=== PATIENT | female | born 1945 | race Caucasian/White ===

== ENCOUNTER 2023-08-11 15:03 | Inpatient (IN) | payer MEDICARE, OTHER ==
[~2023-08-11] VITALS: Ht 157.4 cm; Wt 86.4 kg
[2023-08-11] MEDS ORDERED: Glimepiride1 MG PO (19:38)
[2023-08-11] MEDS ORDERED: EXELON1 EAC2 TD (19:40)
[2023-08-11] MEDS ORDERED: LEVOTHYROXINE25 MCG PO (19:40)
[2023-08-11] MEDS ORDERED: ZESTRIL5 MG PO (19:41)
[2023-08-11] MEDS ORDERED: LIPITOR20 MG PO (19:41)
[2023-08-11] MEDS ORDERED: REMERON15 M2 PO (19:50)
[2023-08-11] MEDS ORDERED: METOPROLOL25 MG PO (19:50)
[2023-08-11] MEDS ORDERED: SEN-O-TABS8.6 MG PO (19:52)
[2023-08-11] MEDS ORDERED: NAMENDA-5 PO (19:52)
[2023-08-11] MEDS ORDERED: TYLENOL325 M1 PO (19:52)
[2023-08-11] MEDS ORDERED: LORazepam 1 MG TAB PO PRN (19:55)
[2023-08-11 20:00] VITALS: BP 138/78
[2023-08-11] MEDS ORDERED: Ziprasidone Mesylate 20 MG VIAL IM PRN (20:00)
[2023-08-11] MEDS ORDERED: Water, Sterile 10 ML VIAL IM PRN (20:00)
[2023-08-11] MEDS ORDERED: ACETAMINOPHEN 325 MG TAB PO PRN (20:05)
[2023-08-11] MEDS ORDERED: MG-AL HYDROXIDE/SIMETICONE 30 ML UDC PO PRN (20:05)
[2023-08-11] MEDS ORDERED: Magnesium Hydroxide 30 ML UDC PO PRN (20:05)
[2023-08-11] MEDS ORDERED: Menthol/Zinc Oxide 4 GM THIN T PRN (20:15)
[2023-08-11] MEDS ORDERED: Sennosides A and B 8.6 MG TAB PO PRN (21:00)
[2023-08-11] MEDS ORDERED: Memantine Hydrochloride 5 MG TAB PO SCH (21:00)
[2023-08-11] MEDS ORDERED: ATORVASTATIN CALCIUM 20 MG TAB PO SCH (21:00)
[2023-08-11] MEDS ORDERED: DIVALPROEX SODIUM 125 MG TAB PO SCH (21:00)
[2023-08-12] MEDS ORDERED: Levothyroxine Sodium 25 MCG TAB PO SCH (06:00)
[2023-08-12 06:49] LABS: BASO % 0.5 % (0.0-1.0); EOS # 0.3 10*3/uL (0.0-0.4); EOS % 3.8 % (1.0-4.0); HEMATOCRIT 44.5 % (37.0-47.0); LYMPH # 2.7 10*3/uL (1.3-4.4); LYMPH % 34.8 % (27.0-41.0); MEAN CELL VOLUME 100.9 fl (81.0-99.0); MEAN CORPUSCULAR HGB 32.9 pg (27.0-31.0); MEAN CORPUSCULAR HGB CONC 32.6 g/dl (33.0-37.0); MEAN PLATELET VOLUME 9.8 fl (9.6-12.3); MONO # 0.6 10*3/uL (0.1-1.0); MONO % 7.6 % (3.0-9.0); NEUT # 4.2 10*3/uL (2.3-7.9); PLATELET COUNT AUTOMATED 236 10*3/uL (130-400); RED BLOOD COUNT 4.41 10*6/uL (4.10-5.10); WHITE BLOOD COUNT 7.9 10*3/uL (4.8-10.8)
[2023-08-12 07:15] LABS: ALKALINE PHOSPHATASE 83 U/L (46-116); BUN 8 mg/dl (9-23); CHLORIDE 104 mmol/L (98-107); CHOLESTEROL 174 mg/dL (<200); LDL CHOLESTEROL 86 mg/dL (9-159); POTASSIUM 3.8 mmol/L (3.4-5.1); SGPT/ALT 10 U/L (5-49); TOTAL PROTEIN 6.3 gm/dL (6.0-8.0); TRIGLYCERIDES 116 mg/dl (<150)
[2023-08-12] MEDS ORDERED: GLIMEPIRIDE 2 MG TAB PO SCH (07:30)
[2023-08-12 07:52] LABS: VITAMIN D, 25-HYDROXY 42.2 ng/mL (30-100)
[2023-08-12 08:00] VITALS: BP 141/72
[2023-08-12] MEDS ORDERED: LISINOPRIL 5 MG TAB PO SCH (09:00)
[2023-08-12] MEDS ORDERED: Metoprolol Tartrate 25 MG TAB PO SCH (09:00)
[2023-08-12] MEDS ORDERED: RIVASTIGMINE 13.3 MG/24 HR TDM T SCH (09:50)
[2023-08-12 14:00] VITALS: BP 141/72
[2023-08-12 20:00] VITALS: BP 129/61
[2023-08-12] MEDS ORDERED: Mirtazapine 15 MG TAB PO SCH (21:00)
[2023-08-13 07:31] VITALS: BP 150/78
[2023-08-13] MEDS ORDERED: Memantine Hydrochloride 5 MG TAB PO SCH (09:00)
[2023-08-13 20:00] VITALS: BP 140/76
[2023-08-14 01:54] LABS: BILIRUBIN Negative (Negative); BLOOD Negative (Negative); CLARITY Clear (Clear); COLOR Yellow (Yellow); GLUCOSE Negative (Negative); KETONE Negative (Negative); LEUKO ESTERASE 1+ (Negative); NITRITE Negative (Negative); PH 6.5 (4.5-8.0)
[2023-08-14 02:03] LABS: EPITHELIAL CELLS 21-30
[2023-08-14 07:38] VITALS: BP 143/63
[2023-08-14] MEDS ORDERED: NYSTATIN 15 GM BOT T SCH (10:00)
[2023-08-14 20:00] VITALS: BP 134/65
[2023-08-14] MEDS ORDERED: Memantine Hydrochloride 10 MG TAB PO SCH (21:00)
[2023-08-15 08:04] VITALS: BP 139/71
[2023-08-15 20:00] VITALS: BP 132/65
[2023-08-15] MEDS ORDERED: MUPIROCIN 15 GM TUBE T SCH (22:00)
[2023-08-16 07:26] VITALS: BP 130/674
[2023-08-16 20:00] VITALS: BP 131/74
[2023-08-17 08:00] VITALS: BP 131/67
[2023-08-17 20:00] VITALS: BP 138/66
[2023-08-18 07:33] VITALS: BP 135/68
[2023-08-18 20:00] VITALS: BP 150/88
[2023-08-19 08:00] VITALS: BP 121/66
[2023-08-19 20:00] VITALS: BP 130/74
[2023-08-20 07:47] VITALS: BP 142/65
[2023-08-20 20:00] VITALS: BP 145/82
[2023-08-21 07:46] VITALS: BP 130/58
[2023-08-21] MEDS ORDERED: DIVALPROEX SOD125 MG PO (11:05)
[2023-08-21] MEDS ORDERED: RIVASTIGMINE1 EAC2 T (11:05)
[2023-08-21] MEDS ORDERED: MEMANTINE HCL10 MG PO (11:05)
[2023-08-21] MEDS ORDERED: MIRTAZAPINE15 M2 PO (11:05)
== END 2023-08-21 13:08 | DRG 883 ==
LOC: 3N 15:03
PROVIDERS: Student in an Organized Health Care Education/Training Program; ADMIT Psychiatry & Neurology Psychiatry; ATTEND Psychiatry & Neurology Psychiatry
DX: F63.81 Intermittent explosive disorder (principal); N18.9 Chronic kidney disease, unspecified; E11.69 Type 2 diabetes mellitus with other specified complication; E55.9 Vitamin D deficiency, unspecified; E78.5 Hyperlipidemia, unspecified; E11.22 Type 2 diabetes mellitus with diabetic chronic kidney disease; I12.9 Hypertensive chronic kidney disease with stage 1 through stage 4 chronic kidney disease, or unspecified chronic kidney disease; G47.00 Insomnia, unspecified; F41.9 Anxiety disorder, unspecified; G30.9 Alzheimer's disease, unspecified; F02.80 Dementia in other diseases classified elsewhere, unspecified severity, without behavioral disturbance, psychotic disturbance, mood disturbance, and anxiety; Z87.81 Personal history of (healed) traumatic fracture